=== PATIENT | male | born 1970 | race Caucasian/White ===

== ENCOUNTER → 2020-05-15 | Outpatient (CLI) | payer BC | LOC: ZCOL.LAB 17:01 | DX: J32.4 Chronic pansinusitis (principal) ==

== ENCOUNTER → 2020-06-23 | Outpatient (CLI) | payer BC | LOC: ZCOL.LAB 21:52 | DX: Z01.89 Encounter for other specified special examinations (principal) ==

== ENCOUNTER → 2020-06-24 | Outpatient (CLI) | payer BC | LOC: ZCOL.LAB 15:15 | DX: H60.392 Other infective otitis externa, left ear (principal) ==